=== PATIENT | male | born 1970 | race Caucasian/White ===

== ENCOUNTER 2016-08-20 23:46 | Emergency (ER) | payer OTHER ==
[~2016-08-20] VITALS: Ht 180.3 cm; Wt 63.5 kg
== END 2016-08-21 00:31 | disposition left against medical advice (07) ==
LOC: ED 23:46
DX: M25.511 Pain in right shoulder (principal); F17.200 Nicotine dependence, unspecified, uncomplicated; V49.88XA Car occupant (driver) (passenger) injured in other specified transport accidents, initial encounter; Y93.89 Activity, other specified; Y92.413 State road as the place of occurrence of the external cause; Y99.9 Unspecified external cause status